=== PATIENT | female | born 1955 | race Caucasian/White ===

== ENCOUNTER 2018-05-08 18:54 | Emergency (ER) | payer SELFPAY ==
[~2018-05-08] VITALS: Ht 160 cm; Wt 84.4 kg
--- NOTE | 2018-05-08 20:17 | NUR ---
PT CAME IN TO ER C/O ROXI, PLACED ON CHAIR 2, T&R, SEEN AND EVAL DONE BY RHIANNON BUENO, AWITING ORDERS. Addendum: 05/08/18 at 2019 by [id number]
--- NOTE | 2018-05-08 20:21 | NUR ---
Patient discharged to home in stable condition. Rx given. Written and verbal after care instructions given. Patient verbalizes understanding of instruction. no reaction noted at time of discharge.
[2018-05-24 14:04] VITALS: BP 153/92
== END 2018-05-08 20:24 | disposition home or self-care (01) ==
LOC: ER 18:58
DX: L50.9 Urticaria, unspecified (principal); I10 Essential (primary) hypertension
CPT/HCPCS: 99282; A4606; Z7610

== ENCOUNTER 2020-08-31 10:34 | Emergency (ER) | payer SELFPAY ==
[~2020-08-31] VITALS: Ht 160 cm; Wt 86.2 kg
--- NOTE | 2020-08-31 10:45 | NUR ---
"CP started having sharp pains on chest area around 1030am when lifting." Patient a/ox4, breathing even and unlabored, no sob noted. Needs attended. Dr. Turner at bedside for eval.
[2020-08-31] MEDS ORDERED: FAMOTIDINE/PF INJ 20 MG/2 ML VIAL IV ONE ×2 (10:48→11:00)
--- NOTE | 2020-08-31 10:52 | NUR ---
IV line established, blood drawn and sent to lab.
[2020-08-31 10:54] LABS: BASOPHILS % (AUTO) 0.5 % (0.0-2.0); EOSINOPHILS % (AUTO) 1.2 % (0.0-6.0); HEMATOCRIT 34 % (33-45); HEMOGLOBIN 11.4 g/dL (11.5-14.8); LYMPHOCYTES # (AUTO) 1.2 /CMM (0.8-4.8); LYMPHOCYTES % (AUTO) 19.6 % (20.0-44.0); MEAN CORPUSCULAR HGB CONC 34 g/dl (31.0-36.0); MEAN CORPUSCULAR VOLUME 101 fL (82-100); MONOCYTES # (AUTO) 0.4 /CMM (0.1-1.30); MONOCYTES % (AUTO) 6.4 % (2.0-12.0); NEUTROPHILS # (AUTO) 4.4 /CMM (1.8-8.9); NEUTROPHILS % (AUTO) 72.3 % (43.0-81.0); PLATELET COUNT (AUTO) 222 /CMM (150-450); RED BLOOD CELL COUNT(AUTO) 3.36 MIL/uL (4.0-5.2); WHITE BLOOD COUNT (AUTO) 6.1 K/uL (4.3-11.0)
[2020-08-31 11:03] LABS: CALCIUM, SERUM 8.8 mg/dL (8.5-10.1); CARBON DIOXIDE 30 mmol/L (21-32); CHLORIDE 105 mmol/L (98-107); CREATININE 0.8 mg/dL (0.6-1.3); GLUCOSE 95 mg/dL (74-106); POTASSIUM 3.9 mmol/L (3.5-5.1); SODIUM SERUM 140 mmol/L (136-145); UREA NITROGEN, BLOOD 20 mg/dL (7-18)
[2020-08-31 11:14] LABS: ALANINE AMINOTRANSFERASE 29 U/L (12-78); ALKALINE PHOSPHATASE 70 U/L (46-116); ASPARTATE AMINOTRANSFERASE 18 U/L (15-37); BILIRUBIN,DIRECT 0.1 mg/dL (0.0-0.2); BILIRUBIN,TOTAL 0.6 mg/dL (0.2-1.0); TOTAL PROTEIN, SERUM 7.8 g/dL (6.4-8.2)
--- NOTE | 2020-08-31 14:07 | NUR ---
DCPATIENT A/OX4, BREATHING EVEN AND UNLABORED, NO SOB NOTED, NEEDS ATTENDED, DENIES PAIN AT THIS TIME. IV removed. Catheter intact and site benign. Pressure and 4x4 applied to site. No bleeding noted.Patient discharged to home in stable condition. Written and verbal after care instructions given. Patient verbalizes understanding of instruction.
[2020-08-31 14:08] VITALS: BP 126/70
== END 2020-08-31 14:08 | disposition home or self-care (01) ==
LOC: ER 10:36
DX: R07.89 Other chest pain (principal); R79.89 Other specified abnormal findings of blood chemistry; I10 Essential (primary) hypertension
CPT/HCPCS: 36415; 71045; 80048; 80076; 84484 ×2; 85025; 85378; 93005 ×4; 96374; 99285; J3490